=== PATIENT | male | born 1965 | race Caucasian/White ===

== ENCOUNTER 2017-04-02 08:33 | Emergency (ER) | payer OTHER ==
[~2017-04-02] VITALS: Ht 175.3 cm; Wt 72.6 kg
[~2017-04-02 08:33] MED LIST: ALPRAZOLAM ER2 MG PO; CLONAZEPAM 1 MG1 M1 PO; CYMBALTA60 MG PO; FENTANYL 0.50 MCG/ML; FENTANYL 1100 MCG/HR TRANSDERM; LEXAPRO 10 MG T10 M2; METHADONE HCL 110 M1 PO; MOBIC15 MG PO; ONDANSETRON ODT4 MG PO; OXYCODONE HCL15 MG PO; OXYCONTIN60 MG PO; PERCOCET 5-3251 EACH PO; PERCOCET 7.5-31 EACH PO; TRAZODONE HCL100 MG PO
[2017-04-02 08:46] LABS: URINE BILIRUBIN 1+ (Negative); URINE BLOOD 2+ (Negative); URINE COLOR YELLOW; URINE GLUCOSE-RANDOM* NEGATIVE (Negative); URINE KETONES TRACE (Negative); URINE LEUKOCYTES-REFLEX 3+ (Negative); URINE PROTEIN (DIPSTICK) 1+ (Negative)
[2017-04-02 08:57] LABS: ICTOTEST (BILI CONFIRMATORY) Negative (Negative)
[2017-04-02 09:10] LABS: URINE WBC-REFLEX >25 Many /HPF (0-5)
[2017-04-02 09:11] LABS: AMORPHOUS URATES Few /LPF (None Seen); CASTS None Seen /LPF (None Seen); SQUAMOUS 0-3 Few /LPF (0-3); URINE RBC 3-10 Few /HPF (0-2)
[2017-04-02] MEDS ORDERED: BENTYL 20 MG TA20 M1 PO (09:43)
[2017-04-02] MEDS ORDERED: BACTRIM DS TAB1 EACH PO (09:43)
== END 2017-04-02 10:18 | disposition home or self-care (01) ==
LOC: ER 08:33
PROVIDERS: Emergency Medicine
DX: N39.0 Urinary tract infection, site not specified (principal); R19.7 Diarrhea, unspecified; R11.2 Nausea with vomiting, unspecified; J44.9 Chronic obstructive pulmonary disease, unspecified; F17.210 Nicotine dependence, cigarettes, uncomplicated; F10.99 Alcohol use, unspecified with unspecified alcohol-induced disorder

== ENCOUNTER 2018-01-16 11:24 | Inpatient (IN) | payer OTHER ==
[~2018-01-16] VITALS: Ht 175.3 cm; Wt 72.1 kg
[~2018-01-16 11:24] MED LIST changes: +BACTRIM DS TAB1 EACH PO; +BENTYL 20 MG TA20 M1 PO
[2018-01-16 11:40] VITALS: BP 132/98
[2018-01-16 12:16] LABS: ABSOLUTE NEUTROPHILS 5.5 thou/uL (1.4-8.2); EOSINOPHILS 2.5 % (0.0-3.0); HEMATOCRIT 40.8 % (42.0-52.0); HEMOGLOBIN 14.3 gm/dL (14.0-18.0); LYMPHOCYTES 17.9 % (24.0-44.0); MCH 34.4 pg (26.0-34.0); MCV 98.5 fL (80.0-100.0); MONOCYTES 6.6 % (1.0-8.0); PLATELET COUNT 222 thou/uL (150-400); RBC 4.15 mil/uL (4.50-6.00); RDW 14.1 % (10.5-14.5); WBC 7.6 thou/uL (4.0-11.0)
[2018-01-16 12:25] LABS: CALCIUM 9.4 mg/dL (8.5-10.1); CREATININE 1.2 mg/dL (0.7-1.3)
[2018-01-16 12:30] LABS: ALBUMIN 3.4 g/dL (3.4-5.0); INR 1.1; PROTIME 11.1 Seconds (9.3-11.4); TOTAL BILIRUBIN 1.2 mg/dL (<0.1-1.0); TOTAL PROTEIN 7.9 g/dL (6.4-8.2)
[2018-01-16 12:34] LABS: POTASSIUM 2.4 mmol/L (3.5-5.1)
[2018-01-16 13:05] LABS: URINE BLOOD 1+ (Negative); URINE CLARITY CLEAR; URINE COLOR YELLOW; URINE GLUCOSE-RANDOM* NEGATIVE (Negative); URINE KETONES TRACE (Negative); URINE LEUKOCYTES 3+ (Negative); URINE NITRITE NEGATIVE (Negative); URINE PROTEIN (DIPSTICK) TRACE (Negative); URINE SPECIFIC GRAVITY <= 1.005 (1.005-1.035)
[2018-01-16 13:06] LABS: ICTOTEST (BILI CONFIRMATORY) Negative (Negative); URINE BILIRUBIN NEGATIVE (Negative)
[2018-01-16 13:11] LABS: CASTS None Seen /LPF (None Seen); CRYSTALS None Seen /LPF (None Seen); SQUAMOUS None Seen /LPF (0-3); URINE WBC >25 Many /HPF (0-5)
[2018-01-16 13:12] LABS: BACTERIA >30 Many /HPF (None Seen); URINE RBC 0-2 Rare /HPF (0-2)
[2018-01-16 13:55] VITALS: BP 115/90
[2018-01-16 19:23] VITALS: BP 133/86
[2018-01-16 21:43] LABS: HEMATOCRIT 36.9 % (42.0-52.0); HEMOGLOBIN 12.6 gm/dL (14.0-18.0)
[2018-01-16 21:50] LABS: CALCIUM 8.7 mg/dL (8.5-10.1); POTASSIUM 3.4 mmol/L (3.5-5.1)
[2018-01-17 03:04] VITALS: BP 124/81
[2018-01-17 06:09] LABS: HEMATOCRIT 34.1 % (42.0-52.0); HEMOGLOBIN 11.7 gm/dL (14.0-18.0); MCH 34.5 pg (26.0-34.0); MCHC 34.3 g/dL (28.0-37.0); MCV 100.6 fL (80.0-100.0); RBC 3.39 mil/uL (4.50-6.00); RDW 14.8 % (10.5-14.5); WBC 7.8 thou/uL (4.0-11.0)
[2018-01-17 07:29] LABS: CALCIUM 7.9 mg/dL (8.5-10.1); CREATININE 0.8 mg/dL (0.7-1.3); POTASSIUM 3.5 mmol/L (3.5-5.1)
[2018-01-17 08:00] VITALS: BP 122/86
[2018-01-17 16:00] VITALS: BP 124/89
[2018-01-17 20:33] VITALS: BP 130/86
[2018-01-18 04:06] VITALS: BP 147/99
[2018-01-18 09:10] VITALS: BP 132/92
[2018-01-18] MEDS ORDERED: FLOMAX0.4 MG PO (10:24)
[2018-01-18] MEDS ORDERED: KEFLEX500 M1 PO (10:25)
[2018-01-18] MEDS ORDERED: PERCOCET PO (10:26)
[2018-01-18 11:54] VITALS: BP 132/92
[2018-01-18 12:06] LABS: ABSOLUTE NEUTROPHILS 3.9 thou/uL (1.4-8.2); BASOPHILS 0.7 % (0.0-2.0); HEMATOCRIT 33.1 % (42.0-52.0); HEMOGLOBIN 11.4 gm/dL (14.0-18.0); LYMPHOCYTES 21.9 % (24.0-44.0); MCH 34.4 pg (26.0-34.0); MCHC 34.4 g/dL (28.0-37.0); MCV 100.1 fL (80.0-100.0); MONOCYTES 11.6 % (1.0-8.0); POLYS 61.8 % (36.0-66.0); RDW 14.7 % (10.5-14.5); WBC 6.4 thou/uL (4.0-11.0)
[2018-01-18 12:08] LABS: PLATELET COUNT 166 thou/uL (150-400)
[2018-01-18 12:17] LABS: CALCIUM 7.8 mg/dL (8.5-10.1); CREATININE 0.8 mg/dL (0.7-1.3); POTASSIUM 3.6 mmol/L (3.5-5.1)
[2018-07-06] MEDS ORDERED: LEVAQUIN 500 M500 M1 PO (08:17)
== END 2018-01-18 14:35 | disposition home or self-care (01) | DRG 694 ==
LOC: ER 11:24 → 4S 13:38 → EROBS 13:38 → 4S 15:00
PROVIDERS: Hospitalist; Physician Assistant
DX: N13.2 Hydronephrosis with renal and ureteral calculous obstruction (principal); N39.0 Urinary tract infection, site not specified; N17.0 Acute kidney failure with tubular necrosis; J44.9 Chronic obstructive pulmonary disease, unspecified; F17.210 Nicotine dependence, cigarettes, uncomplicated; E87.6 Hypokalemia; Z79.899 Other long term (current) drug therapy
CPT/HCPCS: 10102

== ENCOUNTER 2018-02-03 12:37 | Inpatient (IN) | payer OTHER ==
[~2018-02-03] VITALS: Ht 175.3 cm; Wt 68.0 kg
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
--- NOTE | ~2018-02-03 | O ---
[facility] [place] [address] OPERATIVE REPORT Name: PERICO GOOD Room #: 426-P [facility] IN M.R.#: [id number] Admission: 02/03/18 Attend Phys: Brandon Galicia MD Discharge: 02/08/18 Date of : 67 Report #: [id number] THIS REPORT FOR: //name// CC: [facility] physician/PCP Brandon Galicia DATE OF SERVICE: 02/07/2018 SURGEON: Zeus More MD COMMISSION CLERK: Sera Barry NP PREOPERATIVE DIAGNOSES: 1. Symptomatic cholelithiasis. 2. Nephrolithiasis. 3. Chronic obstructive pulmonary disease. 4. Anxiety. POSTOPERATIVE DIAGNOSES: 1. Symptomatic cholelithiasis with chronic cholecystitis. 2. Nephrolithiasis. 3. Chronic obstructive pulmonary disease. 4. Anxiety. PROCEDURE: Laparoscopic cholecystectomy with intraoperative cholangiogram. ANESTHESIA: General endotracheal anesthesia and local anesthetic. ESTIMATED BLOOD LOSS: 5 mL. SPECIMEN: Gallbladder. COMPLICATIONS: None appreciated. INDICATIONS FOR PROCEDURE: This is a 52-year-old male patient who was admitted to [facility] couple of weeks ago with nausea and abdominal pain extending to each flank. He was found to have nephrolithiasis and was ultimately dismissed home. He returned to [facility] with worsened symptoms recently. He also noted light colored diarrhea and dark, cloudy urine. CT had revealed cholelithiasis with a 9 mm dilated common bile duct. Followup ultrasound showed a 6 mm dilated common bile duct with gallstones. There was no gallbladder wall thickening or pericholecystic fluid seen. Based on the patient's symptomatology, cholecystectomy with IOC is indicated. His liver function tests were initially elevated at admission, now normalized. [address] [address] OPERATIVE REPORT Name: PERICO GOOD Room #: 426-P DIS IN M.R.#: [id number] Admission: 02/03/18 Attend Phys: Brandon Galicia MD Discharge: 02/08/18 Date of : 67 Report #: [id number] OPERATIVE FINDINGS: Upon entrance into the abdominal cavity, the liver, stomach, small bowel, and colon in the surrounding area appeared otherwise normal. The gallbladder itself did not appear to be acutely inflamed; however, chronic inflammatory changes were seen with omental adhesions to the gallbladder. The critical view consisting of cystic artery, cystic duct and lower edge of the gallbladder, forming a window through which the liver was visible, was seen prior to clipping the cystic duct for cholangiogram. The cholangiogram was normal without filling defects. Contrast flowed freely into the duodenal sweep. There was mild dilatation of the biliary tree. There was also cystic dilatation of the biliary radicles more upstream in discrete areas. After removal of the gallbladder, 3 clips remained on the cystic duct stump. The liver bed was hemostatic. No other significant intra-abdominal pathology was seen. After removal of the gallbladder, it was open on the back table. Pigmented gallstones were seen within the gallbladder. No acute inflammatory changes were present. At the conclusion of the operation, sponge, needle, and instrument counts were correct. The patient tolerated the procedure well. DESCRIPTION OF PROCEDURE IN DETAIL: After the benefits and risks of the procedure were explained to the patient which include but are not limited to risks of bleeding, infection, injury to the biliary tree, injury to adjacent organs, risk of DVT, pulmonary embolus, postoperative pain and postoperative expectations informed consent was obtained. The patient was identified in the preoperative holding area. The patient was then given IV antibiotics as documented in the chart to comply with the SCIP protocol. The patient was taken to the operating room and was placed in the supine position. The patient was given IV sedation and was intubated without incident. A time-out was performed to correctly identify the patient and procedure. SCDs were placed on the patient's bilateral lower extremities. The patient's abdomen was then prepped and draped in the standard sterile fashion with ChloraPrep. Local anesthetic was infiltrated into the skin and subcutaneous tissue. A periumbilical incision was made with a #15 blade scalpel. The 11-mm Visiport was then placed intraperitoneally with the 10-mm 0-degree angled laparoscope. After confirmation of placement within the peritoneal cavity, the scope was changed to a 10-mm 30 degree angled laparoscope and pneumoperitoneum was achieved with insufflation of carbon dioxide. The patient was placed in the reverse Trendelenburg position, rotated to the patient's left. A subxiphoid 5 mm and right subcostal 5 mm ports times 2 were placed under direct visualization after local anesthetic was infiltrated into the skin and subcutaneous tissue and appropriately sized incisions were made. Operative findings are as noted above. The dome of the gallbladder was retracted in a cephalad direction. The gallbladder peritoneum was scored medially and laterally after takedown of the adhesions to the gallbladder. Dissection was carried out around the cystic artery and cystic duct to identify each structure as entering directly into the gallbladder. The critical view as described above was seen. A Hemoclip was then placed on the cystic duct at its junction with the gallbladder. A [address] [address] OPERATIVE REPORT Name: PERICO GOOD Room #: 426-P [facility] IN M.R.#: [id number] Admission: 02/03/18 Attend Phys: Brandon Galicia MD Discharge: 02/08/18 Date of : 67 Report #: [id number] ductotomy was made and the cholangiocatheter was passed into the cystic duct. A clip was placed, contrast was then injected and cholangiogram findings are as noted above. The cholangiocatheter was then removed and the cystic duct was triply clipped distal to the ductotomy. The duct was divided at the ductotomy site with the ultrasonic scalpel with a good seal. The cystic artery was then divided with the ultrasonic scalpel with good hemostasis as well. The gallbladder was then dissected off the liver bed with the ultrasonic scalpel without entrance into the gallbladder or liver bed, and after fully removing the gallbladder, it was placed in an Endopouch and removed through the periumbilical port site. The abdominal cavity was then reentered. Other operative findings are as noted above. The liver bed was hemostatic. After ensuring final hemostasis and ensuring that the clips were secure, the periumbilical port site fascial opening was closed with a simple interrupted 0 PDS suture under direct visualization using the Laurent Gonzales laparoscopic fascial closure device. The ports were removed after the abdominal cavity was desufflated. The fascial suture had been tied under direct visualization to ensure no incorporation of intraabdominal content. Interrupted subcuticular 4-0 Monocryl sutures and Dermabond were used to close the skin incisions. The patient tolerated the procedure well. The patient was awakened, extubated and taken to the recovery room in stable condition with no apparent intraoperative complications. <ELECTRONICALLY SIGNED> By: Zeus More MD, FACS 02/08/18 2112 1135 1206 Zeus More MD, FACS /nt
--- NOTE | ~2018-02-03 | S ---
[facility] [place] [address] SURGICAL PATH RPT PROCEDURE Name: AARON GOOD Room #: 426-P DIS IN M.R.#: [id number] Admission: 02/03/18 Date of : 67 Discharge: 02/08/18 Report #: [id number] Path Case #: [id number] PATHOLOGY REPORT COLLECTION DATE: 02/07/2018 RECEIVED DATE: 02/07/2018 SUBMITTING PHYS: Dr. Zeus More OTHER PHYS: Dr. Brandon Galicia SPECIMEN(S) RECEIVED: A.Gallbladder and contents * * * * * * * * * * * * FINAL DIAGNOSIS: Gallbladder, cholecystectomy: - Mild chronic cholecystitis. - Cholelithiasis. (IUV:mml; 02/10/2018) PATHOLOGIST: Nena Curry M.D. REPORT ELECTRONICALLY SIGNED BY: Nena Curry M.D. DATE/TIME: 02/10/2018 13:31 * * * * * * * * * * * * GROSS PATHOLOGY: Received in formalin labeled "Aaron Good, gallbladder with contents," is a 7.9 x 2.9 x 1.1 cm, previously opened gallbladder with pink-urena serosal surfaces. Opening the gallbladder reveals a velvety, pink-urena mucosa and an average wall thickness of 0.1 cm. Calculi are present displaying a black and granular appearance, and no masses are noted grossly. Fur Cutting Machine Operator sections from the body and fundus are submitted along with the proximal margin in cassette A1. (CAA; 02/07/2018) CLINICAL HISTORY: Symptomatic cholelithiasis INITIAL CPT CODE(S): A; 37053 Professional services performed by [facility] at [facility] [address] , [place] [address] Technical services performed by [facility] at [address] [place] [address] [place] [address] SURGICAL PATH RPT PROCEDURE Name: AARON GOOD Room #: 426-P DIS IN M.R.#: [id number] Admission: 02/03/18 Date of : 67 Discharge: 02/08/18 Report #: [id number] Path Case #: [id number] [place] [address]. [facility] [address] [place] [address] PHONE: [phone] DIRECTOR: Herman Staley M.D. * * * END OF REPORT * * *
[~2018-02-03 12:37] MED LIST changes: +FLOMAX0.4 MG PO; +KEFLEX500 M1 PO; +PERCOCET PO
[2018-02-03 12:38] VITALS: BP 120/94
[2018-02-03 14:10] LABS: ABSOLUTE NEUTROPHILS 8.3 thou/uL (1.4-8.2); EOSINOPHILS 3.3 % (0.0-3.0); HEMATOCRIT 41.4 % (42.0-52.0); HEMOGLOBIN 14.3 gm/dL (14.0-18.0); LYMPHOCYTES 17.1 % (24.0-44.0); MCHC 34.4 g/dL (28.0-37.0); MCV 98.7 fL (80.0-100.0); PLATELET COUNT 207 thou/uL (150-400); POLYS 72.6 % (36.0-66.0); RDW 14.4 % (10.5-14.5); WBC 11.4 thou/uL (4.0-11.0)
[2018-02-03 14:32] LABS: CALCIUM 9.6 mg/dL (8.5-10.1); CREATININE 1.2 mg/dL (0.7-1.3); POTASSIUM 3.3 mmol/L (3.5-5.1)
[2018-02-03 14:47] LABS: URINE COLOR YELLOW
[2018-02-03 14:49] LABS: URINE BILIRUBIN NEGATIVE (Negative)
[2018-02-03 14:50] LABS: URINE CLARITY CLOUDY
[2018-02-03 14:51] LABS: SQUAMOUS 0-3 Few /LPF (0-3); URINE WBC >25 Many /HPF (0-5)
[2018-02-03 14:52] LABS: CASTS None Seen /LPF (None Seen); CRYSTALS None Seen /LPF (None Seen); URINE RBC 0-2 Rare /HPF (0-2)
[2018-02-03 17:31] VITALS: BP 145/78
[2018-02-03 18:35] LABS: ALBUMIN 3.7 g/dL (3.4-5.0); DIRECT BILIRUBIN 0.2 mg/dL (<0.1-0.3); TOTAL BILIRUBIN 1.2 mg/dL (<0.1-1.0); TOTAL PROTEIN 8.3 g/dL (6.4-8.2)
[2018-02-03 20:00] VITALS: BP 116/78
[2018-02-03 23:45] VITALS: BP 119/83
[2018-02-04 04:15] VITALS: BP 129/75
[2018-02-04 06:08] LABS: ABSOLUTE NEUTROPHILS 6.2 thou/uL (1.4-8.2); BASOPHILS 0.5 % (0.0-2.0); EOSINOPHILS 3.3 % (0.0-3.0); HEMATOCRIT 34.1 % (42.0-52.0); LYMPHOCYTES 17.7 % (24.0-44.0); MCH 34.4 pg (26.0-34.0); MCHC 34.6 g/dL (28.0-37.0); MCV 99.2 fL (80.0-100.0); MONOCYTES 9.2 % (1.0-8.0); PLATELET COUNT 188 thou/uL (150-400); POLYS 69.3 % (36.0-66.0); RBC 3.44 mil/uL (4.50-6.00); RDW 14.7 % (10.5-14.5)
[2018-02-04 06:17] LABS: HEMOGLOBIN 11.8 gm/dL (14.0-18.0)
[2018-02-04 06:28] LABS: CALCIUM 8.3 mg/dL (8.5-10.1); CREATININE 1.3 mg/dL (0.7-1.3); POTASSIUM 3.7 mmol/L (3.5-5.1)
[2018-02-04 07:18] VITALS: BP 141/87
[2018-02-04 07:38] VITALS: BP 141/87
[2018-02-04 11:41] VITALS: BP 141/91
[2018-02-04 20:01] VITALS: BP 120/78
[2018-02-05 05:10] VITALS: BP 121/70
[2018-02-05 06:33] LABS: HEMATOCRIT 32.3 % (42.0-52.0); HEMOGLOBIN 11.1 gm/dL (14.0-18.0); MCH 34.4 pg (26.0-34.0); MCHC 34.3 g/dL (28.0-37.0); MCV 100.2 fL (80.0-100.0); RBC 3.22 mil/uL (4.50-6.00); RDW 15.2 % (10.5-14.5); WBC 6.4 thou/uL (4.0-11.0)
[2018-02-05 06:57] LABS: CALCIUM 8.2 mg/dL (8.5-10.1); CREATININE 1.1 mg/dL (0.7-1.3); POTASSIUM 3.5 mmol/L (3.5-5.1)
[2018-02-05 07:45] VITALS: BP 135/80
[2018-02-05 10:00] VITALS: BP 135/80
[2018-02-05 15:40] VITALS: BP 147/83
[2018-02-05 20:00] VITALS: BP 147/84
[2018-02-06 04:00] VITALS: BP 162/81
[2018-02-06 06:18] LABS: HEMATOCRIT 32.4 % (42.0-52.0); HEMOGLOBIN 11.1 gm/dL (14.0-18.0); MCH 34.1 pg (26.0-34.0); MCHC 34.2 g/dL (28.0-37.0); MCV 99.8 fL (80.0-100.0); RBC 3.25 mil/uL (4.50-6.00); RDW 15.1 % (10.5-14.5); WBC 7.2 thou/uL (4.0-11.0)
[2018-02-06 06:35] LABS: ALBUMIN 2.6 g/dL (3.4-5.0); CALCIUM 8.6 mg/dL (8.5-10.1); POTASSIUM 3.6 mmol/L (3.5-5.1); TOTAL BILIRUBIN 0.3 mg/dL (<0.1-1.0)
[2018-02-06 07:10] VITALS: BP 168/84
[2018-02-06 11:15] VITALS: BP 161/71
[2018-02-06 20:00] VITALS: BP 153/80
[2018-02-07 03:53] VITALS: BP 163/88
[2018-02-07 07:01] VITALS: BP 165/77
[2018-02-07 09:17] VITALS: BP 149/82
[2018-02-07] MEDS ORDERED: SENNA-S TABLET1 EACH PO (11:43)
[2018-02-07] MEDS ORDERED: NORCO 7.5-3251 EACH PO (11:43)
[2018-02-07 15:18] VITALS: BP 139/77
[2018-02-07 18:55] VITALS: BP 148/88
[2018-02-08 03:23] LABS: ABSOLUTE NEUTROPHILS 6.3 thou/uL (1.4-8.2); BASOPHILS 0.2 % (0.0-2.0); EOSINOPHILS 0.1 % (0.0-3.0); HEMATOCRIT 32.9 % (42.0-52.0); HEMOGLOBIN 11.2 gm/dL (14.0-18.0); LYMPHOCYTES 8.2 % (24.0-44.0); MCHC 33.9 g/dL (28.0-37.0); MCV 100.2 fL (80.0-100.0); MONOCYTES 8.7 % (1.0-8.0); PLATELET COUNT 185 thou/uL (150-400); POLYS 82.8 % (36.0-66.0); RBC 3.28 mil/uL (4.50-6.00); RDW 15.1 % (10.5-14.5); WBC 7.7 thou/uL (4.0-11.0)
[2018-02-08 03:25] VITALS: BP 145/73
[2018-02-08 03:32] LABS: CALCIUM 8.5 mg/dL (8.5-10.1); CREATININE 1.2 mg/dL (0.7-1.3); POTASSIUM 3.8 mmol/L (3.5-5.1)
[2018-02-08 08:15] VITALS: BP 145/73
[2018-02-08] MEDS ORDERED: BACTRIM DS TAB1 EACH PO (13:13)
[2018-02-08 13:18] VITALS: BP 145/73
[2018-02-08] MEDS ORDERED: NORCO 7.5-3251 EACH PO (13:51)
== END 2018-02-08 14:52 | disposition home or self-care (01) | DRG 418 ==
LOC: ER 12:37 → EROBS 16:57 → 4E 16:57
PROVIDERS: Hospitalist; Internal Medicine; Nurse Practitioner; Physician Assistant; Surgery
PROC: BF141ZZ Fluoroscopy of Gallbladder, Bile Ducts and Pancreatic Ducts using Low Osmolar Contrast (ICD-10-PCS; principal; 2018-02-07)
PROC: 0FT44ZZ Resection of Gallbladder, Percutaneous Endoscopic Approach (ICD-10-PCS; principal; 2018-02-07)
DX: K80.10 Calculus of gallbladder with chronic cholecystitis without obstruction (principal); N13.2 Hydronephrosis with renal and ureteral calculous obstruction; N39.0 Urinary tract infection, site not specified; E87.6 Hypokalemia; J44.9 Chronic obstructive pulmonary disease, unspecified; F41.9 Anxiety disorder, unspecified; K83.8 Other specified diseases of biliary tract; K76.0 Fatty (change of) liver, not elsewhere classified; E83.42 Hypomagnesemia; D64.9 Anemia, unspecified; F17.210 Nicotine dependence, cigarettes, uncomplicated; Z87.828 Personal history of other (healed) physical injury and trauma; Z87.442 Personal history of urinary calculi; Z23 Encounter for immunization; Z80.1 Family history of malignant neoplasm of trachea, bronchus and lung; Z80.0 Family history of malignant neoplasm of digestive organs
CPT/HCPCS: 10084; 50010

== ENCOUNTER 2018-04-22 08:25 | Inpatient (IN) | payer OTHER ==
[~2018-04-22] VITALS: Ht 175.3 cm; Wt 68.3 kg
--- NOTE | ~2018-04-22 | EXE ---
[facility] [place] [address] STRESS ECHOCARDIOGRAM Name: PERICO GOOD Room #: 200-I [facility] IN [facility]#: [id number] Admission: 04/22/18 Attend Phys: Oscar Alvarez MD Discharge: Date of : 67 Date of Service: 04/22/18 1626 Report #: [id number] THIS REPORT FOR: //name// APPROVED REPORT Study performed: 04/22/2018 13:35:03 Exam: Stress Echocardiogram Indication: Chest pain Stress Nurse: Sayda Fuchs RN Status: routine Ht: 5 ft 9 in HR: 98 bpm BP: 126/76 mmHg Medical History Medical History: Smoking Allergies: No known drug allergies Cardiac Risk Factors: FHX of CAD, Smoking Exercise History: Sedentary Procedure The patient underwent an Exercise Stress Test using the Mik Protocol. Blood pressure, heart rate, and EKG were monitored. An Echocardiogram was performed by surgery technician in four stages in quad fashion. At peak stress, four selected images were obtained and placed side by side with resting images for comparison. Stress Test Details Stress Test: Exercise stress testing was performed using a Mik protocol. HR Resting HR: 98 bpm Max Heart Rate (APMHR): 169 bpm Max HR Achieved: 162 bpm Target HR (85% APMHR): 143 bpm % of APMHR: 95 Recovery HR: 98 bpm HR response to stress: Normal HR response to stress BP Resting BP: 126/76 mmHg Max BP: 132/84 mmHg Recovery BP: 132/82 mmHg ECG Resting ECG: Sinus Rhythm [facility] [address] [place] [address] STRESS ECHOCARDIOGRAM Name: PERICO GOOD Room #: 200-I [facility]#: [id number] Admission: 04/22/18 Attend Phys: Oscar Alvarez MD Discharge: Date of : 67 Date of Service: 04/22/18 1626 Report #: [id number] Stress ECG: Sinus Rhythm ST Change: Normal Maximum ST Deviation: 0 mm Arrhythmia: None Recovery ECG: Sinus Rhythm Recovery ST Change: Normal Recovery ST Deviation: 0 mm Recovery Arrhythmia: None Clinical Reason for Termination: Maximal effort Exercise duration: 4 min 40 sec Highest Stage Achieved: Stage 2: 2.5 mph at 12% grade. Exercise capacity: 7 METs Overall Exercise Capacity for Age: Poor Angina Score: None Stress ECG Conclusion Clinical: Non-ischemic ECG: Non-ischemic Jeffrey Treadmill Score is 4.0 which is Moderate risk. Pre-Stress Echo The resting Echocardiogram showed normal left ventricular contractility with an estimated Ejection Fraction of about 55-60%. Post-Stress Echo The stress Echocardiogram showed normal left ventricular contractility with an estimated Ejection Fraction of about 60-65%. Clinical Normal augmentation of myocardial wall segments using a 17 segment model. Conclusion Clinical Response: Non-ischemic Exercise Capacity: Below Average Stress ECG Response: Non-ischemic Stress Echo Images: Non-ischemic The left ventricle is normal in size and wall thickness in both the rest and stress images. Normal stress echocardiogram with maximal exercise stress. No prior study available for comparison. Other Information Study Quality: Adequate [facility] [address] [place] [address] STRESS ECHOCARDIOGRAM Name: PERICO GOOD Room #: 200-I ADM IN [facility]#: [id number] Admission: 04/22/18 Attend Phys: Oscar Alvarez MD Discharge: Date of : 67 Date of Service: 04/22/181625 Report #: [id number] <Conclusion> The left ventricle is normal in size and wall thickness in both the rest and stress images. Normal stress echocardiogram with maximal exercise stress. <ELECTRONICALLY SIGNED> By: Alverto Freedman MD, [facility] 04/22/181625 25 25 Alverto Freedman MD, FAC /INF
--- NOTE | ~2018-04-22 | PATH ---
[facility] [place] [address] PATHOLOGY RPT PROCEDURE Name: AARON GOOD Room #: 200-I DIS IN M.R.#: [id number] Admission: 04/22/18 Date of : 67 Discharge: 04/24/18 Report #: [id number] Path Case #: [id number] [facility] Accession Number: [id number] . 01 Material submitted: . PART A: BX OF DUODENUM R/O SPRUE PART B: BX OF DUODENAL BULB NODULE PART C: BX OF ANTRUM R/O H. PYLORI PART D: BX OF RANDOM GASTRIC . 01 Clinical history: . Pre-OP DX: Abdominal pain, nausea, vomiting Post-OP DX: Mild gastritis, duodenal bulb nodules, delayed gastric emptying suspected . 02 Diagnosis: A. "Bx of duodenum rule out sprue," biopsy: - Small bowel/duodenal mucosa with mild duodenitis; no evidence of celiac sprue. . B. "Bx of duodenal bulb nodule," biopsy: - Small bowel/duodenal mucosa with mild reactive changes and focal gastric metaplasia; no dysplasia seen. . C. "Bx of antrum rule out H. pylori," biopsy: - Gastric antral type mucosa with mild reactive changes and mild chronic inflammation. - Negative H. pylori immunohistochemical stain (block C1); control reacted appropriately. . D. "Bx-random of gastric," biopsy: - Gastric mucosa with mild reactive changes and mild chronic inflammation. - Negative H. pylori immunohistochemical stain (block D1); control reacted appropriately. (YONIW:; 04/24/18) QRQ/04/24/2018 . 02 Electronically signed: . Birgit Yun MD, Pathologist NPI- [id number] . 01 Gross description: . A. Received in formalin labeled "Aaron Good, BX of duodenum, rule out sprue," are 2 segments of urena soft tissue measuring 0.7 x 0.2 x 0.2 cm in aggregate dimensions and ranging from 0.3 to 0.4 cm in maximum dimension. The specimen is submitted entirely in cassette A1. . [address] [address] PATHOLOGY RPT PROCEDURE Name: AARON GOOD Room #: 200-I DIS IN M.R.#: [id number] Admission: 04/22/18 Date of : 67 Discharge: 04/24/18 Report #: [id number] Path Case #: [id number] B. Received in formalin labeled "Aaron Good, BX of duodenal bulb nodule," are 2 segments of urena soft tissue measuring 0.6 x 0.2 x 0.2 cm in aggregate dimensions and measuring 0.3 cm each in maximum dimension. The specimen is submitted entirely in cassette B1. . C. Received in formalin labeled "Aaron Good, BX of antrum, rule out H. pylori," are 2 segments of urena soft tissue measuring 0.8 x 0.2 x 0.2 cm in aggregate dimensions and measuring 0.4 cm each in maximum dimension. The specimen is submitted entirely in cassette C1. . D. Received in formalin labeled "Aaron Good, random gastric BX," is a single fragment of urena soft tissue measuring 0.6 cm in maximum dimension. The specimen is submitted entirely in cassette D1. (TSD; 04/23/2018) TOB/TOB . 02 Pathologist provided ICD-10: K29.80, K29.50, R10.9, R11.2 . 02 CPT . 351799, 821457, 896784, 952496, Z60711 Performed at: [address], [place], [place] [id number] MD Mc Rivas MD Phone: [phone] Performed at: [address] [id number] MD Nena Curry MD Phone: [phone]
--- NOTE | ~2018-04-22 | EKG ---
[address] [address] ELECTROCARDIOGRAM REPORT Name: PERICO GOOD Room #: PRE [facility].#: [id number] Admission: Attend Phys: Discharge: Date of : 67 Report #: [id number] THIS REPORT FOR: //name// [facility] ED Test Date: 2018-04-22 Test Time: 08:24:33 Pat Name: PERICO FLORENTINO Department: Room: Gender: Historical Archeologist: [facility] : 1965 Requested By: Efren Mae Order Number: [id number] MD: Alverto Freedman Measurements Intervals Marcellus Rate: 101 P: 88 MS: 131 QRS: 73 QRSD: 91 T: 56 QT: 358 QTc: 465 Interpretive Statements Sinus tachycardia Probable left ventricular hypertrophy No previous ECG available for comparison Electronically Signed On 04-22-2018 9:05:38 CDT by Alverto Freedman [email or web address] <ELECTRONICALLY SIGNED> By: Alverto Freedman MD, [facility] 04/22/1805 0824 0824 Alverto Freedman MD, FACC /EPI
[~2018-04-22 08:25] MED LIST changes: +NORCO 7.5-3251 EACH PO; +SENNA-S TABLET1 EACH PO
[2018-04-22 08:27] VITALS: BP 151/110
[2018-04-22 09:15] LABS: ABSOLUTE NEUTROPHILS 4.8 thou/uL (1.4-8.2); BASOPHILS 0.8 % (0.0-2.0); EOSINOPHILS 3.4 % (0.0-3.0); HEMATOCRIT 43.3 % (42.0-52.0); HEMOGLOBIN 14.9 gm/dL (14.0-18.0); LYMPHOCYTES 27.6 % (24.0-44.0); MCHC 34.5 g/dL (28.0-37.0); MCV 98.6 fL (80.0-100.0); MONOCYTES 10.1 % (1.0-8.0); PLATELET COUNT 330 thou/uL (150-400); POLYS 58.1 % (36.0-66.0); RBC 4.39 mil/uL (4.50-6.00); RDW 18.4 % (10.5-14.5); WBC 8.3 thou/uL (4.0-11.0)
[2018-04-22 09:20] LABS: ANION GAP 13 mmol/L (7-16); BUN 6 mg/dL (7-18); CALCIUM 8.7 mg/dL (8.5-10.1); CHLORIDE 100 mmol/L (98-107); CO2 23 mmol/L (21-32); CREATININE 1.2 mg/dL (0.7-1.3); GLUCOSE 118 mg/dL (74-106); SODIUM 136 mmol/L (136-145)
[2018-04-22 09:24] LABS: POTASSIUM 2.4 mmol/L (3.5-5.1)
[2018-04-22 09:26] LABS: APTT 29.2 Seconds (24.5-32.8); PROTIME 10.7 Seconds (9.3-11.4)
[2018-04-22 09:29] LABS: ALBUMIN 3.4 g/dL (3.4-5.0); SGOT 73 U/L (15-37); SGPT 80 U/L (30-65); TOTAL BILIRUBIN 0.9 mg/dL (<0.1-1.0); TOTAL PROTEIN 7.8 g/dL (6.4-8.2); TROPONIN-I <0.06 ng/mL (<0.06)
[2018-04-22 10:01] LABS: ANISOCYTOSIS 2+
[2018-04-22 10:02] VITALS: BP 150/105
[2018-04-22 10:23] VITALS: BP 134/101
[2018-04-22] MEDS ORDERED: BACTRIM DS TAB1 EAC1 PO (10:50)
[2018-04-22 11:04] LABS: CHOLESTEROL 223 mg/dL (<200); HDL CHOLESTEROL 42 mg/dL (>40); LDL CHOLESTEROL 154 mg/dL (<100); TC:HDL 5.3 Ratio (Not establshd); TRIGLYCERIDE 139 mg/dL (<150); VLDL 28 mg/dL (<40)
[2018-04-22 11:33] LABS: AMP/METHAMP Negative (Negative); BARBITURATES Negative (Negative); BENZODIAZEPINES Negative (Negative); COCAINE Negative (Negative); METHADONE Negative (Negative); OPIATES POSITIVE (Negative); PCP Negative (Negative)
[2018-04-22 11:56] LABS: URINE BILIRUBIN NEGATIVE (Negative); URINE BLOOD 1+ (Negative); URINE CLARITY CLOUDY; URINE COLOR YELLOW; URINE GLUCOSE-RANDOM* NEGATIVE (Negative); URINE KETONES NEGATIVE (Negative); URINE LEUKOCYTES-REFLEX 3+ (Negative); URINE NITRITE-REFLEX NEGATIVE (Negative); URINE PROTEIN (DIPSTICK) TRACE (Negative)
[2018-04-22 12:08] LABS: SQUAMOUS None Seen /LPF (0-3)
[2018-04-22 12:09] LABS: BACTERIA-REFLEX >30 Many /HPF (None Seen); CASTS None Seen /LPF (None Seen); CRYSTALS None Seen /LPF (None Seen); URINE RBC 0-2 Rare /HPF (0-2); URINE WBC-REFLEX >25 Many /HPF (0-5)
[2018-04-22 16:00] VITALS: BP 136/92
[2018-04-22 19:57] VITALS: BP 139/93
[2018-04-23 04:16] LABS: ALBUMIN 2.9 g/dL (3.4-5.0); ANION GAP 5 mmol/L (7-16); BUN 9 mg/dL (7-18); CALCIUM 8.4 mg/dL (8.5-10.1); CHLORIDE 104 mmol/L (98-107); CO2 27 mmol/L (21-32); GLUCOSE 88 mg/dL (74-106); MAGNESIUM 1.8 mg/dL (1.8-2.4); SGOT 91 U/L (15-37); SGPT 80 U/L (30-65); SODIUM 136 mmol/L (136-145); TOTAL BILIRUBIN 0.8 mg/dL (<0.1-1.0); TOTAL PROTEIN 6.4 g/dL (6.4-8.2); TROPONIN-I <0.06 ng/mL (<0.06)
[2018-04-23 04:17] LABS: POTASSIUM 4.1 mmol/L (3.5-5.1)
[2018-04-23 04:28] LABS: ABSOLUTE NEUTROPHILS 3.6 thou/uL (1.4-8.2); BASOPHILS 0.8 % (0.0-2.0); HEMATOCRIT 36.3 % (42.0-52.0); LYMPHOCYTES 25.1 % (24.0-44.0); MCH 34.3 pg (26.0-34.0); MCHC 34.1 g/dL (28.0-37.0); MCV 100.8 fL (80.0-100.0); POLYS 60.1 % (36.0-66.0); RDW 18.6 % (10.5-14.5); WBC 5.9 thou/uL (4.0-11.0)
[2018-04-23 04:29] LABS: HEMOGLOBIN 12.4 gm/dL (14.0-18.0)
[2018-04-23 04:30] LABS: PLATELET COUNT 239 thou/uL (150-400)
[2018-04-23 04:33] VITALS: BP 126/84
[2018-04-23 07:48] VITALS: BP 137/90
[2018-04-23 10:48] VITALS: BP 126/87
[2018-04-23 16:02] VITALS: BP 129/82
[2018-04-23 19:16] VITALS: BP 125/89
[2018-04-23 23:52] VITALS: BP 109/71
[2018-04-24] VITALS (8 sets, daily range): BP systolic 110–141; BP diastolic 68–92
[2018-04-24] MEDS ORDERED: LIPITOR40 MG PO (14:35)
[2018-04-24] MEDS ORDERED: MAG6464 MG PO (14:35)
[2018-04-24] MEDS ORDERED: POTASSIUM20 PO (14:35)
[2018-04-24] MEDS ORDERED: PROTONIX40 M1 PO (14:35)
== END 2018-04-24 20:00 | disposition home or self-care (01) | DRG 391 ==
LOC: ER 08:25 → EROBS 09:57 → 2N 09:57 → ENTRNSPT 17:17 → DELTRNSPT 17:23 → ENTRNSPT 04-23 09:26 → EDTRNSPTSTS 04-23 09:35 → DELTRNSPT 04-24 12:25 → 2N 04-24 20:00
PROVIDERS: Emergency Medicine; Hospitalist; Nurse Practitioner
PROC: 0DB68ZX Excision of Stomach, Via Natural or Artificial Opening Endoscopic, Diagnostic (ICD-10-PCS; principal; 2018-04-23)
PROC: 0DB98ZX Excision of Duodenum, Via Natural or Artificial Opening Endoscopic, Diagnostic (ICD-10-PCS; principal; 2018-04-23)
PROC: 0DJD8ZZ Inspection of Lower Intestinal Tract, Via Natural or Artificial Opening Endoscopic (ICD-10-PCS; 2018-04-24)
DX: K57.30 Diverticulosis of large intestine without perforation or abscess without bleeding (principal); K29.71 Gastritis, unspecified, with bleeding; R07.89 Other chest pain; K20.9 Esophagitis, unspecified; K31.89 Other diseases of stomach and duodenum; J44.9 Chronic obstructive pulmonary disease, unspecified; E87.6 Hypokalemia; E83.42 Hypomagnesemia; F41.9 Anxiety disorder, unspecified; E78.5 Hyperlipidemia, unspecified; G89.29 Other chronic pain; N40.0 Benign prostatic hyperplasia without lower urinary tract symptoms; F17.210 Nicotine dependence, cigarettes, uncomplicated; Z87.81 Personal history of (healed) traumatic fracture; Z87.828 Personal history of other (healed) physical injury and trauma; Z71.6 Tobacco abuse counseling; Z87.442 Personal history of urinary calculi; Z90.49 Acquired absence of other specified parts of digestive tract; Z80.1 Family history of malignant neoplasm of trachea, bronchus and lung; Z80.0 Family history of malignant neoplasm of digestive organs
CPT/HCPCS: 10081; 62110; 62900; 70005

== ENCOUNTER 2018-09-08 15:12 | Inpatient (IN) | payer OTHER ==
[~2018-09-08] VITALS: Ht 175.3 cm; Wt 64.1 kg
--- NOTE | ~2018-09-08 | PATH ---
[facility] [place] [address] PATHOLOGY RPT PROCEDURE Name: AARON GOOD Room #: 456-P DIS IN M.R.#: [id number] Admission: 09/08/18 Date of : 67 Discharge: 09/11/18 Report #: [id number] Path Case #: [id number] [facility] Accession Number: [id number] . 01 Material submitted: . PART A: BX OF DUODENUM TO R/O SPRUE PART B: BX OF GASTRITIS TO R/O H. PYLORI PART C: BX OF RECTUM FOR THICKENING ON CT SCAN . 01 Clinical history: . GI bleed, thickening in rectum . 02 Diagnosis: A. Small bowel mucosa, duodenum to rule our sprue, endoscopic biopsy: - No diagnostic abnormalities present. - Negative for villous blunting or increase in intraepithelial lymphocytes. . B. Gastric mucosa, gastritis to rule out H. pylori, endoscopic biopsy: - Mild reactive gastropathy. - Negative for intestinal metaplasia or atrophy. - Negative for Helicobacter pylori (properly controlled immunohistochemical stain performed). . C. Large intestinal mucosa, rectum, endoscopic biopsy: - Mild focal cryptitis as well as reactive changes. - Negative for dysplasia or malignancy. [facility] . 02 Comment: Sections of the colonic mucosa designated "rectum" show focal cryptitis, and a moderately cellular lamina propria composed predominantly of lymphocytes and plasma cells and occasional eosinophils. Surface ulceration is not identified. There are no crypt abscesses, granulomas or viral inclusions. The process affects all the fragments with a similar intensity. Given the description, the differential diagnosis includes mild focal active colitis of self-limited etiology or medication induced colitis, acute diverticulitis, as well as early inflammatory bowel disease. Please correlate with clinical as well as endoscopic findings. (IUV:pit 09/10/2018) . 02 Electronically signed: . Nena Curry MD, Pathologist NPI- [id number] . 01 Gross description: . A. Received in formalin labeled "Aaron Good, [place] [address] PATHOLOGY RPT PROCEDURE Name: AARON GOOD Room #: 456-P DIS IN M.R.#: [id number] Admission: 09/08/18 Date of : 67 Discharge: 09/11/18 Report #: [id number] Path Case #: [id number] rule out sprue," are 3 segments of urena soft tissue measuring 0.9 x 0.6 x 0.3 cm in aggregate dimensions and ranging from 0.3 to 0.4 cm in maximum dimension. The specimen is submitted entirely in cassette A1. . B. Received in formalin labeled "Aaron Good BX of gastritis to, rule out H pylori," are 2 segments of urena soft tissue measuring 1.3 x 0.3 x 0.2 cm in aggregate dimensions and ranging from 0.5 to 0.6 cm in maximum dimension. The specimen is submitted entirely in cassette B1. . C. Received in formalin labeled "Aaron Good BX of rectum for thickening on CT scan," are 4 segments of urena soft tissue measuring 1.2 x 0.6 x 0.2 cm in aggregate dimensions and ranging from 0.3 to 0.4 cm in maximum dimension. The specimen is submitted entirely in cassette C1. (TSD; 09/09/2018) TOB/TOB . 02 Pathologist provided ICD-10: K31.9, K62.89, K92.2 . 02 CPT . 690850, 669377, 202369 Specimen Comment: A courtesy copy of this report has been sent to Specimen Comment: [phone], . Specimen Comment: Report sent to / DR YAN Specimen Comment: A duplicate report has been generated due to demographic updates. Performed at: [address], [place] [id number] MD Mc Rivas MD Phone: [phone] Performed at: [address] [id number] MD Nena Curry MD Phone: [phone]
--- NOTE | ~2018-09-08 | P ---
[facility] [place] [address] PROCEDURE REPORT Name: PERICO GOOD Room #: 456-P [facility] IN M.R.#: [id number] Admission: 09/08/18 Attend Phys: Filemon Porras MD Discharge: 09/11/18 Date of : 67 Report #: [id number] THIS REPORT FOR: //name// CC: Filemon Porras MD [facility] physician/PCP DATE OF SERVICE: 09/09/2018 PROCEDURE PERFORMED: Upper endoscopy with biopsies. HISTORY OF PRESENT ILLNESS: The patient is a 53-year-old male who presented to the emergency room yesterday with coffee-ground type emesis and melena. Hemoglobin is dropped from 13-9.9. The patient has been taking multiple doses of ibuprofen per day, at least 12-14 pills per day. He actually underwent an EGD and colonoscopy by my partner, Dr. Chu in March of this year for rectal bleeding, was noted to have some esophagitis, sigmoid diverticulosis, but otherwise essentially negative. He has not been taking any antacids. He does complain of some odynophagia, denies any dysphagia. A CT scan of the abdomen and pelvis was performed on admission, which shows abnormal gastric wall and duodenal wall thickening, compatible with gastritis and duodenitis. No evidence of perforation or rupture. There is thickening of the wall of the rectum as well, which could be inflammatory. Plan is for EGD and we also discussed a limited flexible sigmoidoscopy to evaluate the rectal mucosa. DESCRIPTION OF PROCEDURE: The risks and benefits of the procedure were explained to the patient, those risks including but not limited to bleeding, perforation, the risk of sedation. He understood these risks and gave informed consent. Sedation was given using propofol per anesthesia. Next, using a standard Olympus upper endoscope, the scope was placed in the patient's mouth and advanced under direct vision through the esophagus, stomach and into the second portion of the duodenum. The larynx was normal in appearance. The upper esophagus was normal; however, in the mid to distal esophagus, severe grade D erosive esophagitis with multiple ulcerations throughout this area were noted. No active bleeding, but the tissue was very friable. In the stomach, there was a single 5 mm clean white based ulcer in the fundus. A mild gastritis was noted in the body and antrum. Several small clean white based ulcers were noted in the prepyloric area. No evidence of active bleeding, but this did cause some narrowing. The pylorus itself was normal. Biopsies of the gastric mucosa were also obtained to rule out H. pylori. Within the duodenal bulb and first portion, multiple clean white based ulcers were also noted in this area. These range from 1-2 cm. No active bleeding or visible vessel was noted. In the second portion of the duodenum, no ulcerations were noted, but there was some scalloping noted, which may be consistent with celiac sprue. Random biopsies were also obtained in this area. Again, there was no active bleeding on upper endoscopy today. The scope was then withdrawn and the upper part of the [address] [address] PROCEDURE REPORT Name: PERICO GOOD Room #: 456-P [facility] IN M.R.#: [id number] Admission: 09/08/18 Attend Phys: Filemon Porras MD Discharge: 09/11/18 Date of : 67 Report #: [id number] procedure was complete. The bed was then turned and a digital rectal exam was then performed, which was normal. Next, using the same Olympus upper scope, the scope was placed in the patient's anus and advanced under direct vision through the rectum into the distal sigmoid. The patient was not prepped. I was able to see the rectal mucosa, which was normal. The distal sigmoid colon had a large amount of melanotic type of stool. No inflammation or abnormality of the rectal mucosa was noted. Biopsies were obtained. The scope was then withdrawn and the procedure terminated. The patient tolerated the procedure well. IMPRESSION: 1. Severe grade D erosive esophagitis. 2. Gastric ulcers and gastritis. No active bleeding. 3. Duodenal ulcers. 4. Duodenal scalloping, possibly secondary to sprue. 5. Normal rectal mucosa. RECOMMENDATIONS: 1. Await biopsy results. 2. Continue b.i.d. PPI therapy. 3. We will add liquid Carafate at this time. 4. We will advance diet. 5. Continue to monitor hemoglobin closely. We will likely discharge home in the near future. We would recommend repeat upper endoscopy in 8-12 weeks while in therapy while holding NSAIDs at this time. Thank you for allowing me to participate in his care. <ELECTRONICALLY SIGNED> By: Isidro Horner MD 09/12/18 [id number] Isidro Horner MD /nt
--- NOTE | ~2018-09-08 | EKG ---
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 : 1965 Requested By: Bethany Garcia Order Number: [id number] MD: Alverto Freedman Measurements Intervals [place]in Rate: 106 P: 88 PA: 163 QRS: 70 QRSD: 92 T: 42 QT: 347 QTc: 461 Interpretive Statements Sinus tachycardia Otherwise no significant abnormality Compared to ECG 07/03/2018 10:31:52 No significant change was found Electronically Signed On 09-09-2018 7:55:02 [employer] SCI[employer] by Alverto Freedman [email or web address] <ELECTRONICALLY SIGNED> By: Alverto Freedman MD, [facility] 09/09/18 [id number] Alverto Freedman MD, FACC /EPI
[~2018-09-08 15:12] MED LIST changes: +BACTRIM DS TAB1 EAC1 PO; +LEVAQUIN 500 M500 M1 PO; +LIPITOR40 MG PO; +MAG6464 MG PO; +POTASSIUM20 PO; +PROTONIX40 M1 PO
[2018-09-08 15:20] VITALS: BP 126/88
[2018-09-08 16:03] LABS: ABSOLUTE NEUTROPHILS 10.4 thou/uL (1.4-8.2); BASOPHILS 0.8 % (0.0-2.0); EOSINOPHILS 0.4 % (0.0-3.0); HEMATOCRIT 37.6 % (42.0-52.0); HEMOGLOBIN 13.1 gm/dL (14.0-18.0); LYMPHOCYTES 11.5 % (24.0-44.0); MCH 36.1 pg (26.0-34.0); MCV 103.3 fL (80.0-100.0); MONOCYTES 7.8 % (1.0-8.0); PLATELET COUNT 274 thou/uL (150-400); POLYS 79.5 % (36.0-66.0); RBC 3.64 mil/uL (4.50-6.00); RDW 16.8 % (10.5-14.5); WBC 13.1 thou/uL (4.0-11.0)
[2018-09-08 16:12] LABS: CALCIUM 9.4 mg/dL (8.5-10.1); CREATININE 1.4 mg/dL (0.7-1.3)
[2018-09-08 16:15] LABS: POTASSIUM 2.8 mmol/L (3.5-5.1)
[2018-09-08 16:19] LABS: ALBUMIN 3.6 g/dL (3.4-5.0); TOTAL BILIRUBIN 1.2 mg/dL (<0.1-1.0); TOTAL PROTEIN 8.2 g/dL (6.4-8.2)
[2018-09-08 16:42] LABS: URINE BILIRUBIN NEGATIVE (Negative); URINE BLOOD NEGATIVE (Negative); URINE CLARITY CLEAR; URINE COLOR YELLOW; URINE GLUCOSE-RANDOM* NEGATIVE (Negative); URINE KETONES 1+ (Negative); URINE LEUKOCYTES-REFLEX NEGATIVE (Negative); URINE NITRITE-REFLEX NEGATIVE (Negative); URINE PROTEIN (DIPSTICK) NEGATIVE (Negative); URINE UROBILINOGEN 0.2 E.U./dl (0.2-1.0)
[2018-09-08 16:50] LABS: AMP/METHAMP Negative (Negative); BARBITURATES Negative (Negative); BENZODIAZEPINES Negative (Negative); COCAINE Negative (Negative); METHADONE Negative (Negative); OPIATES Negative (Negative); PCP Negative (Negative)
[2018-09-08 18:06] VITALS: BP 129/99
[2018-09-08 18:17] VITALS: BP 129/99
[2018-09-08 20:44] VITALS: BP 135/80
[2018-09-08 23:15] LABS: HEMATOCRIT 35.1 % (42.0-52.0); HEMOGLOBIN 11.9 gm/dL (14.0-18.0)
[2018-09-09 02:42] VITALS: BP 118/82
[2018-09-09 05:33] LABS: ABSOLUTE NEUTROPHILS 4.8 thou/uL (1.4-8.2); EOSINOPHILS 3.6 % (0.0-3.0); LYMPHOCYTES 23.8 % (24.0-44.0); MCH 35.7 pg (26.0-34.0); MCHC 34.2 g/dL (28.0-37.0); MCV 104.4 fL (80.0-100.0); MONOCYTES 9.4 % (1.0-8.0); POLYS 62.2 % (36.0-66.0); RBC 2.78 mil/uL (4.50-6.00); RDW 16.4 % (10.5-14.5); WBC 7.7 thou/uL (4.0-11.0)
[2018-09-09 05:37] LABS: HEMOGLOBIN 9.9 gm/dL (14.0-18.0); PLATELET COUNT 177 thou/uL (150-400)
[2018-09-09 05:44] LABS: CALCIUM 8.1 mg/dL (8.5-10.1); MAGNESIUM 1.2 mg/dL (1.8-2.4)
[2018-09-09 08:00] VITALS: BP 113/79
[2018-09-09 16:48] VITALS: BP 123/66
[2018-09-10 04:26] VITALS: BP 115/68
[2018-09-10 05:51] LABS: HEMATOCRIT 26.3 % (42.0-52.0); HEMOGLOBIN 9.1 gm/dL (14.0-18.0); MCH 36.6 pg (26.0-34.0); MCHC 34.6 g/dL (28.0-37.0); MCV 105.7 fL (80.0-100.0); RBC 2.49 mil/uL (4.50-6.00); RDW 16.5 % (10.5-14.5); WBC 6.1 thou/uL (4.0-11.0)
[2018-09-10 08:04] VITALS: BP 120/67
[2018-09-10 15:34] VITALS: BP 111/68
[2018-09-10 20:11] VITALS: BP 120/58
[2018-09-11 03:34] VITALS: BP 125/78
[2018-09-11 05:47] LABS: HEMOGLOBIN 9.1 gm/dL (14.0-18.0); MCH 36.8 pg (26.0-34.0); MCHC 34.8 g/dL (28.0-37.0); MCV 105.8 fL (80.0-100.0); RBC 2.46 mil/uL (4.50-6.00); RDW 16.1 % (10.5-14.5); WBC 5.9 thou/uL (4.0-11.0)
[2018-09-11 07:12] VITALS: BP 114/69
[2018-09-11] MEDS ORDERED: TRAMADOL 50 MG50 MG PO (13:58)
[2018-09-11] MEDS ORDERED: MAG-AL PLUS SUS30 ML PO (13:58)
[2018-09-11] MEDS ORDERED: MIRALAX17 GM PO (13:58)
[2018-09-11] MEDS ORDERED: CARAFATE 11 GM/10 M1 PO (13:58)
[2018-09-11] MEDS ORDERED: MAGNESIUM400 MG PO (13:58)
[2018-09-11] MEDS ORDERED: ACETAMINOPHEN325 M1 PO (13:58)
[2018-09-11] MEDS ORDERED: PANTOPRAZOLE SO40 M1 PO (13:58)
[2018-09-11 14:12] VITALS: BP 114/69
[2018-09-11 16:26] VITALS: BP 114/69
== END 2018-09-11 16:28 | disposition home or self-care (01) | DRG 380 ==
LOC: ER 15:12 → 4W 16:57 → EROBS 16:57 → 4W 18:45 → ENTRNSPT 09-11 16:02 → 4W 09-11 16:28
PROVIDERS: Internal Medicine; Nurse Practitioner; Nurse Practitioner Family
PROC: 0DB68ZX Excision of Stomach, Via Natural or Artificial Opening Endoscopic, Diagnostic (ICD-10-PCS; principal; 2018-09-09)
PROC: 0DB98ZX Excision of Duodenum, Via Natural or Artificial Opening Endoscopic, Diagnostic (ICD-10-PCS; principal; 2018-09-09)
PROC: 0DBP8ZX Excision of Rectum, Via Natural or Artificial Opening Endoscopic, Diagnostic (ICD-10-PCS; principal; 2018-09-09)
DX: K22.11 Ulcer of esophagus with bleeding (principal); N17.0 Acute kidney failure with tubular necrosis; D62 Acute posthemorrhagic anemia; K25.4 Chronic or unspecified gastric ulcer with hemorrhage; K29.71 Gastritis, unspecified, with bleeding; K29.81 Duodenitis with bleeding; K26.4 Chronic or unspecified duodenal ulcer with hemorrhage; J44.9 Chronic obstructive pulmonary disease, unspecified; F17.210 Nicotine dependence, cigarettes, uncomplicated; E87.6 Hypokalemia; G89.29 Other chronic pain; E86.0 Dehydration; Z66 Do not resuscitate; F41.9 Anxiety disorder, unspecified; Z90.49 Acquired absence of other specified parts of digestive tract; Z87.442 Personal history of urinary calculi; Z71.6 Tobacco abuse counseling; Z79.1 Long term (current) use of non-steroidal anti-inflammatories (NSAID)
CPT/HCPCS: 10045; 62110; 62900; 70005